=== PATIENT | female | born 1975 | race Caucasian/White ===

== ENCOUNTER → 2016-11-19 | Outpatient (CLI) | payer OTHER | LOC: CIMAGING 07:20 | DX: Z12.31 Encounter for screening mammogram for malignant neoplasm of breast (principal) | CPT/HCPCS: G0202 ==

== ENCOUNTER → 2018-02-24 | Outpatient (CLI) | payer OTHER | LOC: CIMAGING 08:58 | DX: Z12.31 Encounter for screening mammogram for malignant neoplasm of breast (principal) ==